=== PATIENT | male | born 1955 | race African-American/Black ===

== ENCOUNTER 2019-01-11 18:17 | Emergency (ER) | payer OTHER ==
[2019-01-11] MEDS ORDERED: Dextrose 50% Abboject 50 ML SYRINGE ONE (18:34)
[2019-01-11 18:59] LABS: Hemoglobin 12.3 g/dL (14.0-18.0); Mean Corpuscular HGB CONC 29.6 g/dL (32.0-36.0); Mean Corpuscular Hemoglobin 23.1 pg (27.0-31.0); Platelet Count 137 thou/uL (130-400); RBC Distribution Width 13.1 % (11.5-14.5); Red Blood Cell (RBC) Count 5.34 mill/uL (4.70-6.10); White Blood Cell (WBC) Count 6.3 thou/uL (4.8-10.8)
[2019-01-11] MEDS ORDERED: Thiamine HCl 200 MG/2 ML VIAL ONE (19:04)
[2019-01-11 19:07] LABS: ALT (SGPT) 17 U/L (8-55); AST (SGOT) 26 U/L (5-34); Albumin 4.2 g/dL (3.4-4.8); Alkaline Phosphatase 98 U/L (40-150); Anion Gap 20 mmol/L (10-20); BUN (Urea Nitrogen) 50 mg/dL (8.4-25.7); Bilirubin, Total 0.6 mg/dL (0.2-1.2); Calc. Creatinine Clearance 0 mL/min (70-130); Calcium 9.3 mg/dL (7.8-10.44); Carbon Dioxide 22 mmol/L (23-31); Chloride 105 mmol/L (98-107); Estimated GFR-MDRD 23; Globulin 3.7 g/dL (2.4-3.5); Glucose 83 mg/dL (80-115); Potassium 3.6 mmol/L (3.5-5.1); Protein, Total 7.9 g/dL (5.8-8.1); Sodium 143 mmol/L (136-145)
[2019-01-11] MEDS ORDERED: Sodium Chloride 0.9% 100 ML ONE (19:13)
[2019-01-11] MEDS ORDERED: Piperacillin/Tazobactam 4.5 GM VIAL ONE (19:13)
[2019-01-11 19:22] LABS: Lymphocytes 30 % (21-51); MDiff Complete? YES; Monocytes 9 % (0-10); Neutrophil 60 % (42-75); Platelet Morphology Comment Appears Adequate; RBC Morphology Normal
--- NOTE | 2019-01-11 19:39 | CT ---
CT OF THE BRAIN WITHOUT CONTRAST: 01/11/19 The ventricles are normal in size with no shift. No intracranial bleeding, mass or sign of acute stro ke was found. The skull appears intact. The visible paranasal sinuses and mastoid air cells are clear . There is probably a small subcentimeter polyp attached to the medial wall of the left maxillary sin us. IMPRESSION: No acute intracranial findings. POS: HOME
--- NOTE | 2019-01-11 19:56 | RAD ---
PORTABLE CHEST: 01/11/19 An AP portable film at 1838 shows a normal sized heart given body habitus and AP projection. There is no definite congestive change. No lobar consolidation was seen. There are no effusions. IMPRESSION: No acute finding. POS: HOME
[2019-01-11 20:01] LABS: Bilirubin Small (Negative); Blood, Urine Trace (Negative); Glucose, Urine (Dipstick) Negative (Negative); Leukocyte Moderate (Negative); Nitrite Negative (Negative); Protein, Urine (Dipstick) 30 mg/dL (Neg-Trace)
[2019-01-11 20:02] LABS: Clarity Hazy (Clear)
[2019-01-11 20:09] LABS: Bacteria/HPF 2+ HPF (None Seen); Mucous/LPF 1+ LPF (<2+); RBC/HPF 0-3 HPF (0-3); Squamous Epithelial 0-3 HPF (0-3); Transitional Epithelial 0-3 HPF (None Seen)
== END 2019-01-11 20:41 | disposition short-term general hospital (02) ==
LOC: BURERS 18:17
DX: A41.9 Sepsis, unspecified organism (principal); E86.0 Dehydration; N39.0 Urinary tract infection, site not specified; E11.9 Type 2 diabetes mellitus without complications; I10 Essential (primary) hypertension; E78.00 Pure hypercholesterolemia, unspecified
CPT/HCPCS: 36416; 70450; 71045; 80053; 80307; 81003; 81015; 83605; 84484; 85025; 87040; 87077; 87086; 87186; 93005; 94760; 96361; 96365; 96372; 96375; 36415-59; J1956; J2543; J3411; J3490